=== PATIENT | female | born 1955 | race Caucasian/White ===

== ENCOUNTER 2020-09-05 16:20 | Outpatient (REF) | payer OTHER, SELFPAY ==
--- NOTE | 2020-09-05 16:29 | US_ITS ---
EXAMINATION: US VENOUS ULTRASOUND WITH DOPPLER LOWER EXTREMITY, LEFT CLINICAL INFORMATION: Left lower extremity pain and swelling COMPARISON: None TECHNIQUE: Ultrasound of the deep veins is performed from the hip to the calf with compression sonography and color and pulse Doppler assessment. Spectral analysis with color-flow imaging is performed. FINDINGS: There is normal venous compression and respiratory variation and augmented flow. The visualized common femoral vein, superficial femoral vein, profunda femoral vein, popliteal vein, and the trifurcation region shows no evidence of deep venous thrombosis. There is no significant popliteal fossa cyst. If the patient's symptoms persist, followup ultrasound in 5 days 7 days might be of value to exclude proximal propagation from a non-visualized calf vein. US/US venous duplex LE LT IMPRESSION: No DVT demonstrated in the left lower extremity.
== END 2020-09-05 16:21 | disposition home or self-care (01) ==
LOC: HO.US 16:20
PROVIDERS: Visit Provider Nurse Practitioner Family
DX: I82.401 Acute embolism and thrombosis of unspecified deep veins of right lower extremity (principal)
CPT/HCPCS: 93971

== ENCOUNTER → 2021-01-06 14:02 | Outpatient (REF) | payer OTHER, SELFPAY ==
--- NOTE | 2021-01-06 14:05 | CA_ITS ---
Transthoracic Echocardiogram Patient (Last, First, Middle): Kristin Smyth J Gender: Female Date of : 1955 Age: 65 Procedure Date: 01/06/2021 Procedure Type: Transthoracic Echocardiogram Location: OP Height: 152.4 cm Weight: 109.32 kg BSA: 2.02 m2 Heart Rate: bpm BP: 127 / 72 mmHg [employer]: RO Referring MD: Maritza Ferraro MD Corporate Lawyer: Sony Bernal MD Symptoms: M79.89 - Other specified soft tissue disorders Study Quality: Technically Difficult/contrast ECG Rhythm: Sinus Conclusions: - 1. Technically limited study despite use of contrast agent 2. Normal LV systolic and diastolic function 3. Limited evaluation of cardiac valves with normal cardiac valvular Doppler 4. Normal RV systolic pressure 5. No gross pericardial effusion Findings Procedure Information The patient receives contrast. Left Ventricle Normal left ventricular size, thickness, and systolic function. The visually estimated ejection fraction is between 60-65%. Diastolic function is normal for age. Right Ventricle The right ventricle was not well visualized. Atria The left atrium was not well visualized. Interatrial shunt cannot be excluded. The right atrium was not well visualized. Aortic Valve The aortic valve was not well visualized. There is no aortic valve stenosis. There is no aortic valve regurgitation. Mitral Valve The mitral valve was not well visualized. There is trace mitral valve regurgitation. There is no mitral valve stenosis. Pulmonic Valve The pulmonic valve was not well visualized. Tricuspid Valve The tricuspid valve was not well visualized. There is trace tricuspid valve regurgitation. The right ventricular systolic pressure is normal. The right ventricular systolic pressure is 12 mmHg. There is no evidence of pulmonary hypertension. Great Vessels The aorta was not well visualized. The pulmonary artery was not well visualized. Venous The inferior vena cava is normal in size and collapses greater than 50% with inspiration. Pericardium/Pleural The pericardium was not well visualized. Prior Study Comparison No significant change compared to prior study dated: 12/20/2015. Measurements 2D Linear Measurements IVSd: 0.94 0.6-0.9/0.6-1.0 cm LVIDd: 4.34 3.9-5.3/4.2-5.9 cm LVIDd Index: 2.15 2.4-3.2/2.2-3.1 cm/m2 LVIDs: 2.93 2.0-3.6 cm LVPWd: 1.02 0.7-1.1 cm Ao Root: 2.70 2.1-3.5 cm LA Diam: 3.20 2.7-3.8/3.0-4.0 cm LAIDs Index: 1.58 1.5-2.3 cm/m2 LV Mass: 174.66 67-162/88-224 g LV Mass Index: 86.47 43-95/49-115 g/m2 LVOT Diam: 2.00 3.0+(-)1.3 cm Mitral Valve MV Pk E: 1.03 MV PK A: 0.99 MV Decel Time: 176.00 E/A: 1.00 E'Lateral: 11.50 E'Medial: 8.12 E/E' Med: 12.70 E/E' Lat: 9.00 PHT: 52.00 MVA PHT: 4.23 Decel [place]: 5.87 Aortic Valve AoV Pk Adolph: 1.65 AoV Mn Adolph: 1.19 AoV VTI: 0.32 AoV Pk Grad: 11.00 Aov Mn Grad: 6.00 CATERINA Cont.VTI: 2.45 LVOT LVOT Pk Adolph: 1.31 LVOT Mn Adolph: 0.84 LVOT VTI: 0.25 LVOT Pk Grad: 7.00 LVOT Mn Grad: 3.00 LVOT Diam: 2.00 LVOT Area: 3.14 Diastolic Function MV Pk E: 1.03 MV Pk A: 0.99 E/A: 1.00 E'Medial: 8.12 E/E' Med: 12.70 E' Laterial: 11.50 E/E' Lat: 9.00 Tricuspid Valve TR Pk Adolph: 1.47 TR Pk Grad: 9.00 RA Press: 3.00 RVSP: 12.00 Great Vessels Aorta Ao Root-2D: 2.70 2.0-3.7 cm Ao Asc: 3.10 2.1-3.4 cm Updated in Other Vendor System with Status of Final Sony Bernal MD electronically signed on 01/06/2021 5:15:06 PM with status of Final
== END ==
LOC: HO.CARD 14:02
PROVIDERS: PCP Internal Medicine; Visit Provider Internal Medicine
DX: M79.89 Other specified soft tissue disorders (principal)
CPT/HCPCS: 93306; Q9957

== ENCOUNTER 2021-02-04 13:38 | Outpatient (REF) | payer OTHER, SELFPAY ==
[2021-02-04 15:08] LABS: Glucose Urine UA NEG (NEG); Leukocyte Esterase Urine 2+ (NEG); Nitrite Urine NEG (NEG); Specific Gravity - Urine 1.015 (1.005-1.025); UACC Culture Trigger YES; Urine Blood NEG (NEG); Urine Ketones NEG (NEG); Urine Protein TRACE MG/DL (NEG-TRACE)
[2021-02-04 15:11] LABS: Appearance Urine HAZY; Color Urine YELLOW
[2021-02-04 15:18] LABS: Bacteria Urine 1+ /LPF; RBC Urine 0 /HPF (0); Squamous Epithelial Cell Urine 2+ /LPF
== END 2021-02-04 13:39 | disposition home or self-care (01) ==
LOC: HO.LAB 13:38
PROVIDERS: PCP Internal Medicine; Visit Provider Internal Medicine
DX: R30.0 Dysuria (principal)
CPT/HCPCS: 81001; 81003; 87086

== ENCOUNTER 2021-02-10 12:04 | Outpatient (REF) | payer OTHER, SELFPAY ==
[2021-02-10 14:11] LABS: MANUAL DIFF FLAG NO
[2021-02-10 14:20] LABS: Basophils Percent Auto 0.5 % (0-2); Eosinophils Absolute Auto 0.4 X10*3/uL (0.0-0.4); Eosinophils Percent Auto 5.1 % (0-4); Hematocrit 38.7 % (37-47); Imm Gran Abs Auto 0.01 X10*3/uL (0.00-0.03); Imm Gran Pct Auto 0.1 % (0.0-0.4); Lymphocytes Absolute Auto 1.9 X10*3/uL (1.2-4.9); Lymphocytes Percent Auto 26.4 % (20-40); Mean Corpuscular Hemoglobin 30.1 pg (27.0-33.0); Mean Platelet Volume 9.7 fL (9.4-12.3); Monocytes Absolute Auto 0.6 X10*3/uL (0.1-1.2); Monocytes Percent Auto 8.5 % (2-11); Neutrophils Absolute Auto 4.4 X10*3/uL (2.0-8.3); Neutrophils Percent Auto 59.4 % (45-73); Platelet Count 336 X10*3/uL (160-400); Red Blood Count 3.99 X10*6/uL (4.20-5.50); Red Cell Distribution Width 14.8 % (11.0-16.0); White Blood Count 7.3 X10*3/uL (4.8-10.8)
[2021-02-10 14:36] LABS: Alanine Aminotransferase 31 U/L (0-31); Albumin Level 4.3 g/dL (3.5-5.0); Alkaline Phosphatase 123 U/L (39-117); Anion Gap 16 (12-20); Aspartate Amino Transferase 22 U/L (5-31); Bilirubin Total 0.5 mg/dL (0.0-1.0); Blood Urea Nitrogen 12 mg/dL (9-16); Calcium 9.4 mg/dL (8.4-10.2); Carbon Dioxide 26 mmol/L (22-29); Chloride 103 mmol/L (96-108); Estimated Glomerular Filt Rate 53; Glucose Fasting 115 mg/dL (60-99); Potassium 4.6 mmol/L (3.3-5.1); Sodium 140 mmol/L (135-145); Total Protein 7.6 g/dL (6.5-8.0)
[2021-02-10 14:40] LABS: B Type Natriuretic Peptide < 10 pg/mL (<100)
[2021-02-10 14:48] LABS: TSH reflex Free T4 2.17 uIU/mL (0.32-4.0)
== END 2021-02-10 12:05 | disposition home or self-care (01) ==
LOC: HO.10HDL 12:04
PROVIDERS: Visit Provider Internal Medicine
DX: M79.89 Other specified soft tissue disorders (principal)
CPT/HCPCS: 36415; 80053; 83880; 84443; 85025

== ENCOUNTER 2022-03-31 08:28 | Outpatient (REF) | payer OTHER, SELFPAY ==
[2022-03-31 08:47] LABS: MANUAL DIFF FLAG NO
[2022-03-31 09:00] LABS: Basophils Percent Auto 0.5 % (0-2); Eosinophils Absolute Auto 0.4 X10*3/uL (0.0-0.4); Hematocrit 39.3 % (37.0-47.0); Hemoglobin 12.5 g/dl (12.0-16.0); Imm Gran Abs Auto 0.01 X10*3/uL (0.00-0.03); Imm Gran Pct Auto 0.2 % (0.0-0.4); Lymphocytes Absolute Auto 2.1 X10*3/uL (1.2-4.9); Lymphocytes Percent Auto 36.6 % (20-40); Mean Corpuscular HGB Conc 31.8 g/dl (31.0-35.0); Mean Corpuscular Hemoglobin 30.6 pg (27.0-33.0); Mean Corpuscular Volume 96.1 fL (80.0-98.0); Mean Platelet Volume 9.4 fL (9.4-12.3); Monocytes Absolute Auto 0.6 X10*3/uL (0.1-1.2); Monocytes Percent Auto 10.4 % (2-11); Neutrophils Absolute Auto 2.7 x10*3/uL (2.0-8.3); Neutrophils Percent Auto 45.3 % (45-73); Platelet Count 305 X10*3/uL (160-400); Red Blood Count 4.09 X10*6/uL (4.20-5.50); Red Cell Distribution Width 14.5 % (11.0-16.0); White Blood Count 5.9 X10*3/uL (4.8-10.8)
[2022-03-31 09:27] LABS: Alanine Aminotransferase 34 U/L (0-31); Albumin Level 4.3 g/dL (3.5-5.0); Alkaline Phosphatase 115 U/L (39-117); Anion Gap 13 (12-20); Aspartate Amino Transferase 22 U/L (5-31); Bilirubin Total 0.3 mg/dL (0.0-1.0); Blood Urea Nitrogen 16 mg/dL (9-16); Calcium 9.5 mg/dL (8.4-10.2); Carbon Dioxide 28 mmol/L (22-29); Chloride 104 mmol/L (96-108); Cholesterol 196 mg/dL; Estimated Glomerular Filt Rate 57; Glucose Fasting 115 mg/dL (60-99); HDL Cholesterol 60 mg/dL; LDL Cholesterol Calculated 111 mg/dl; Potassium 4.4 mmol/L (3.3-5.1); Sodium 141 mmol/L (135-145); Total Protein 7.5 g/dL (6.5-8.0); Triglycerides 129 mg/dL
[2022-04-04 13:11] LABS: Vitamin D 25-OH, D2 <4 ng/mL; Vitamin D 25-OH, D3 39 ng/mL; Vitamin D 25-OH, Total 39 ng/mL (30-100)
== END 2022-03-31 08:29 | disposition home or self-care (01) ==
LOC: HO.LAB 08:28
PROVIDERS: PCP Internal Medicine; Visit Provider Internal Medicine
DX: E55.9 Vitamin D deficiency, unspecified (principal); E78.5 Hyperlipidemia, unspecified; E66.01 Morbid (severe) obesity due to excess calories; D64.9 Anemia, unspecified; J45.30 Mild persistent asthma, uncomplicated
CPT/HCPCS: 36415; 80053; 80061; 82306; 85025

== ENCOUNTER 2022-12-02 09:26 | Outpatient (REF) | payer OTHER, SELFPAY ==
--- NOTE | ~2022-12-02 | XR_ITS ---
EXAMINATION: XR SHOULDER, RIGHT CLINICAL INFORMATION: Shoulder pain COMPARISON: None TECHNIQUE: AP external rotation, Grashey, scapular Y, and axillary views of the right shoulder. FINDINGS: Mild inferior positioning of the humeral head with respect to glenoid. Glenohumeral joint space is maintained. Small inferior glenoid spur. Mild-moderate acromioclavicular arthritis. Mild subacromial spurring.. Mild greater trochanteric spurring/sclerosis. No acute fracture or dislocation. Diffuse bone demineralization. No abnormal soft tissue calcification. XR/XR shoulder RT min 2V IMPRESSION: Mild glenohumeral joint arthritis. Mild-moderate acromioclavicular arthritis.
--- NOTE | ~2022-12-02 | XR_ITS ---
EXAMINATION: XR WRIST, LEFT CLINICAL INFORMATION: Pain. Patient states pain on lateral border of wrist. COMPARISON: None TECHNIQUE: 5 views of the left wrist. FINDINGS: Moderate-severe first CMC arthritis, with chronic ossification medial to the joint. Mild-moderate triscaphe joint. 2 mm density adjacent to the ulna styloid process, only visualized on one view, could represent subtle nonspecific calcification. No acute fracture or dislocation is seen. Question small calcification/ossification palmar to the proximal carpal row on the lateral projection. Generalized soft tissue prominence. XR/XR wrist LT 2V IMPRESSION: No radiographic evidence of acute fracture or dislocation. Question small nonspecific soft tissue calcifications adjacent the ulnar styloid process, and volar to the proximal carpal row, could be related to dystrophic changes. First CMC moderate-severe arthritis. Mild-moderate triscaphe arthritis.
[2022-12-02 11:37] LABS: Estimated Average Glucose 140 mg/dL; Hemoglobin A1C 152.6738 umol/L; Hemoglobin A1c % 6.5 %
[2022-12-02 11:50] LABS: Alanine Aminotransferase 26 U/L (0-31); Albumin Level 4.1 g/dL (3.5-5.0); Alkaline Phosphatase 127 U/L (39-117); Anion Gap 20 (12-20); Aspartate Amino Transferase 18 U/L (5-31); Bilirubin Total 0.3 mg/dL (0.0-1.0); Blood Urea Nitrogen 17 mg/dL (9-16); Calcium 9.7 mg/dL (8.4-10.2); Carbon Dioxide 24 mmol/L (22-29); Chloride 100 mmol/L (96-108); Cholesterol 207 mg/dL; Estimated Glomerular Filt Rate > 60; Glucose Fasting 115 mg/dL (60-99); HDL Cholesterol 57 mg/dL; LDL Cholesterol Calculated 123 mg/dl; Potassium 4.3 mmol/L (3.3-5.1); Sodium 140 mmol/L (135-145); Total Protein 7.3 g/dL (6.5-8.0); Triglycerides 135 mg/dL
[2022-12-02 11:57] LABS: Vitamin D 25-OH Total 36.8 ng/mL (>30)
== END 2022-12-02 09:27 | disposition home or self-care (01) ==
LOC: HO.LAB 09:26
PROVIDERS: Nurse Practitioner Family; PCP Internal Medicine; Visit Provider Internal Medicine
DX: E55.9 Vitamin D deficiency, unspecified (principal); E78.5 Hyperlipidemia, unspecified; M25.532 Pain in left wrist; M25.511 Pain in right shoulder; E11.9 Type 2 diabetes mellitus without complications
CPT/HCPCS: 36415; 73030; 73100; 80053; 80061; 82306; 83036

== ENCOUNTER 2023-01-11 17:23 | Outpatient (REF) | payer OTHER, SELFPAY ==
[2023-01-11 18:40] LABS: Appearance Urine Clear; Color Urine Yellow; Glucose Urine UA Negative (Negative); Leukocyte Esterase Urine Small (1+) (Negative); Nitrite Urine Negative (Negative); PH 6.5 (5.0-9.0); Specific Gravity - Urine 1.015 (1.005-1.025); UMIC TRIGGER UACC YES; Urine Blood Negative (Negative); Urine Ketones Negative (Negative); Urine Protein Negative (Neg-Trace)
[2023-01-11 18:46] LABS: Bacteria Urine None Seen (None Seen); Hyaline Casts Urine 0-2 /LPF (0-2); RBC Urine 0-2 /HPF (0-2); UACC Culture Trigger YES
== END 2023-01-11 17:24 | disposition home or self-care (01) ==
LOC: HO.LAB 17:23
PROVIDERS: PCP Internal Medicine; Visit Provider Internal Medicine
DX: R30.0 Dysuria (principal)
CPT/HCPCS: 81001; 87086

== ENCOUNTER 2023-01-27 13:02 | Outpatient (REF) | payer OTHER, SELFPAY ==
--- NOTE | ~2023-01-27 | XR_ITS ---
Examination: The right hip and lumbar spine. Clinical indications: Low back pain. Right hip pain. TECHNIQUE: 3 views of lumbar spine and 2 views of right hip. FINDINGS: There is maintained lumbar lordosis. There is loss of L2-L3 disc height with vacuum disc phenomena and ventral spondylosis. Rest the disc heights are normal. There is moderate right L4-L5 and bilateral L5-S1 facet joint arthropathy No visible acute fracture, dislocation, lytic or sclerotic process seen. Right hip: Right hip joint space is maintained normal. No bony erosive changes or loose bodies. No acute fracture or dislocation. There is a small calcification along the greater trochanter likely calcific bursitis. The soft tissues are normal. XR/XR hip RT min 2V IMPRESSION: 1. Degenerative disc changes L2-L3 disc level with ventral spondylosis. Facet joint arthropathy as described above. No visible acute fracture, dislocation or lytic process seen. 2. Unremarkable right hip exam except for calcific bursitis along the greater trochanter.
--- NOTE | ~2023-01-27 | XR_ITS ---
Examination: The right hip and lumbar spine. Clinical indications: Low back pain. Right hip pain. TECHNIQUE: 3 views of lumbar spine and 2 views of right hip. FINDINGS: There is maintained lumbar lordosis. There is loss of L2-L3 disc height with vacuum disc phenomena and ventral spondylosis. Rest the disc heights are normal. There is moderate right L4-L5 and bilateral L5-S1 facet joint arthropathy No visible acute fracture, dislocation, lytic or sclerotic process seen. Right hip: Right hip joint space is maintained normal. No bony erosive changes or loose bodies. No acute fracture or dislocation. There is a small calcification along the greater trochanter likely calcific bursitis. The soft tissues are normal. XR/XR lumbar spine 2-3V IMPRESSION: 1. Degenerative disc changes L2-L3 disc level with ventral spondylosis. Facet joint arthropathy as described above. No visible acute fracture, dislocation or lytic process seen. 2. Unremarkable right hip exam except for calcific bursitis along the greater trochanter.
== END 2023-01-27 13:03 | disposition home or self-care (01) ==
LOC: HO.XRAY 13:02
PROVIDERS: PCP Internal Medicine; Visit Provider Internal Medicine
DX: M25.551 Pain in right hip (principal); M54.50 Low back pain, unspecified
CPT/HCPCS: 72100; 73502

== ENCOUNTER 2023-01-29 12:59 | Outpatient (REF) | payer OTHER, SELFPAY ==
--- NOTE | ~2023-01-29 | US_ITS ---
EXAMINATION: US COMPLETE ABDOMEN WITH LIVER ELASTOGRAPHY CLINICAL INFORMATION: Abdominal pain; morbid obesity. COMPARISON: Abdominal ultrasound dated 06/03/2020. TECHNIQUE: Real-time imaging of the abdominal viscera. Noninvasive ultrasound liver fibrosis assessment is performed using [employer] Elast[employer] point quantification shear wave elastography (2D-SWE) with a C5-2 MHz transducer. Multiple elastography samples are obtained. FINDINGS: PANCREAS: Normal. The visualized pancreatic head and body are normal in appearance. The remainder of the pancreas is obscured from visualization by the overlying bowel gas. ABDOMINAL AORTA: The proximal and middle segments are normal in caliber. The distal segment is largely obscured by overlapping bowel gas. INFERIOR VENA CAVA: Visualized portions are normal. LIVER: The liver demonstrates normal size, mildly lobulated contour and increased echogenicity. No focal lesion or intrahepatic biliary duct dilatation. The right lobe measures 17.2 cm in length. The left lobe measures 11.1 cm in length. Portal flow is towards the liver (hepatopetal). Shear wave liver elastography median stiffness is 1.52 m/s (reference: normal median stiffness is 1.3 m/s or less). IQR/median stiffness to assess sampling precision is 0.23 (reference: good quality data set is IQR/median stiffness of 0.15 or less). GALLBLADDER: Normal. The gallbladder is physiologically distended without evidence of stones, sludge, polyps, wall thickening or pericholecystic fluid. COMMON BILE DUCT: Normal in caliber measuring 0.7 cm in diameter. RIGHT KIDNEY: There are echogenic foci which do not meet formal ultrasound criteria for calculi. No hydronephrosis. No renal calculi or focal parenchymal lesions. The kidney measures 8.7 cm in maximum dimension. LEFT KIDNEY: There are echogenic foci which do not meet formal ultrasound criteria for calculi. No hydronephrosis. No renal calculi or focal parenchymal lesions. The kidney measures 9.2 cm in maximum dimension. SPLEEN: Normal. The spleen measures 9.1 cm in maximum dimension. FREE FLUID: None. US/US abdomen comp w elastography IMPRESSION: 1. There is generalized increase in hepatic echotexture, consistent with fatty infiltration or hepatocellular disease. Please correlate clinically. No focal hepatic mass or intrahepatic biliary dilatation is seen. 2. Liver elastography: Although measurements appear to rule out compensated advanced chronic liver disease, there is statistical variability of the sampling which decreases accuracy. REFERENCE: Society of Radiologists in Ultrasound Liver Stiffness Thresholds (2020): LIVER STIFFNESS THRESHOLDS: *Liver Stiffness equal or less than 1.3 m/s: High probability of being normal. *Liver Stiffness less than 1.7 m/s: In the absence of other known clinical signs, rules out compensated advanced chronic liver disease. *Liver Stiffness 1.7-2.1 m/s: Suggestive of compensated advanced chronic liver disease but need further test for confirmation. *Liver Stiffness over 2.1 m/s: Rules in compensated advanced chronic liver disease. *Liver Stiffness over 2.4 m/s: Suggestive of clinically significant portal hypertension. QUALITY OF DATA SET: *IQR/Median value equal or less than 0.15 implies a quality data set. *IQR/Median value over 0.15 implies a poor quality data set. SIGNIFICANT CHANGE FROM PRIOR EXAM: Significant change if liver stiffness measurement is 10% or greater from prior exam. OTHER CONSIDERATIONS: The stage of liver fibrosis may be overestimated in the setting of acute hepatitis, liver inflammation, elevated liver function tests, hepatic vascular congestion, obstructive cholestasis, non-fasting state, and infiltrative diseases such as amyloidosis and lymphoma. In some patients with NAFLD, the liver stiffness thresholds for compensated advanced chronic liver disease may be lower. In causes other than viral hepatitis and NAFLD, liver stiffness thresholds are not well established.
== END 2023-01-29 13:00 | disposition home or self-care (01) ==
LOC: HO.US 12:59
PROVIDERS: PCP Internal Medicine; Visit Provider Internal Medicine
DX: R10.9 Unspecified abdominal pain (principal)
CPT/HCPCS: 76705; 76981

== ENCOUNTER 2023-03-02 13:39 | Outpatient (REF) | payer OTHER, SELFPAY ==
--- NOTE | ~2023-03-02 | MM_ITS ---
EXAMINATION: BONE DENSITOMETRY CLINICAL INDICATION: Unspecified menopausal and perimenopausal disorder. COMPARISON: None (current study represents initial baseline exam). TECHNIQUE: Using a [employer] DXA System (software version: 13.1) manufactured by [employer], dual-energy x-ray absorptiometry was performed of the lumbar spine and left hip. The images are of good technical quality. Summary results are attached. FINDINGS: AP SPINE L1-L4: BMD 1.135 g/cm2, Z-score 0.1, T-score -0.4, normal. LEFT FEMUR, NECK: BMD 0.912 g/cm2, Z-score -0.1, T-score -0.9, normal. LEFT FEMUR, TOTAL: BMD 0.948 g/cm2, Z-score 0.0, T-score -0.5, normal. IDENTIFIED RISK FACTORS: Bilateral oophorectomy, early menopause, history of fracture (adult), hysterectomy, osteoporosis, recurrent falls, secondary osteoporosis. HISTORY OF FRACTURE: Lower extremity. MEDICATIONS: Vitamin D. MM/XR DEXA axial skeleton IMPRESSION: 1. DIAGNOSIS: Normal bone density based on the lowest T-score value of -0.9 in the femoral neck applying World Health Organization criteria. 2. 10-YEAR FRACTURE RISK PREDICTION, FRAX: According to the guidelines, FRAX calculation should only be performed on patients in the osteopenia bone density category. Therefore, FRAX was not performed on this patient. 3. Treatment Recommendations: NOF guidelines recommend consideration for treatment in postmenopausal women and men age 50 and older presenting with the following: -A hip or vertebral (clinical or morphometric) fracture. -T-score less than or equal to -2.5 at the femoral neck or spine after appropriate evaluation to exclude secondary causes. -Low bone mass at the hip or spine and a 10-year fracture probability by FRAX of greater than or equal to 3% for hip fracture or greater than or equal to 20% for major osteoporotic fracture based on the [place] adapted WHO algorithm. 4. Other Recommendations: All treatment decisions require clinical judgment and consideration of individual patient factors, including patient preferences, comorbidities, previous drug use, risk factors not captured in the FRAX model (e.g. frailty, falls, vitamin D deficiency, increased bone turnover, interval significant decline in bone density) and possible under or overestimation of fracture risk by FRAX. FUTURE SCAN RECOMMENDATION: People with diagnosed cases of osteoporosis or at high risk for fracture should have regular bone mineral density tests. For patients eligible for Medicare, routine testing is allowed once every 2 years. The testing frequency can be increased to one year for patients who have rapidly progressing disease, those who are receiving or discontinuing medical therapy to restore bone mass, or have additional risk factors.
== END 2023-03-02 13:40 | disposition home or self-care (01) ==
LOC: HO.MAMMO 13:39
PROVIDERS: PCP Internal Medicine; Visit Provider Internal Medicine
DX: Z13.820 Encounter for screening for osteoporosis (principal); Z78.0 Asymptomatic menopausal state
CPT/HCPCS: 77080

== ENCOUNTER 2023-07-05 14:06 | Outpatient (AMB) | payer OTHER, SELFPAY ==
[2023-07-05 14:14] VITALS: BP 136/78; BMI 41.3
--- NOTE | 2023-07-05 14:14 | A.OFFPC_ITS ---
Vital Signs 07/05/23 14:14 Height 5 ft 2 in Weight 226 lb BMI 41.3 BP 136/78 Blood Pressure Location Lt brachial Position Sitting Intake Visit Reasons: follow up lipids Intake Note: Patient here for a follow up Lipids, c/o left foot pain Adult Educator Required: No Accompanied by: Self / Same As Patient Allergies naproxen [NAPROXEN] Allergy (Severe, Verified 07/05/23 14:25) RASH,DIFF BREATHING, anaphylaxis NSAIDS (Non-Steroidal Anti-Inflamma [NSAIDS (NON-STEROIDAL ANTI-INFLAMMA] Allergy (Severe, Verified 07/05/23 14:25) ANAPHYLAXIS celecoxib [Celebrex] Allergy (Intermediate, Verified 07/05/23 14:25) anaphylaxis erythromycin base [ERYTHROMYCIN BASE] Allergy (Intermediate, Verified 07/05/23 14:25) SWELLING strawberry [STRAWBERRY] Allergy (Intermediate, Verified 07/05/23 14:25) SWELLING, DIFF BREATHING Medication List - Last Reconciled 07/05/23 by Maritza Ferraro MD baclofen 20 mg PO TID 30 days [id number]-qvthbqaopnaxg-ukjp 50-325-40 mg 1 tab PO Q6H PRN 30 days cholecalciferol (vitamin D3) 25 mcg PO DAILY 2 months clonazepam 0.5 mg PO BID PRN epinephrine 0.3 mg (0.3 mL) IM Q10M PRN 30 days epinephrine 0.3 mg (0.3 mL) IM Q4H PRN 30 days fluoxetine 60 mg (3 x 20 mg) PO DAILY 7 days furosemide 20 mg PO DAILY 30 days hydrocortisone 1% (Anti-Itch (hydrocortisone)) 1 appl topical BID PRN 14 days omeprazole 40 mg PO DAILY 90 days ondansetron 8 mg PO Q12H PRN 30 days [pads As directed] polyethylene glycol 3350 17 grams PO DAILY simvastatin 40 mg PO DAILY Ventolin HFA 90 mcg/actuation (albuterol sulfate) 2 puffs inhalation Q6H PRN 30 days NS zolpidem 5 mg PO BEDTIME Tobacco use date assessed: 11/04/22 Fall risk assessment: No Falls in past year Last assessed Fall Risk: 07/05/23 Dental Screening Dental Screen Date: 07/05/23 Did you have a dental visit in the last 12 months?: No Did you have a dental problem in the last 6 months where you did not have access to dental care?: No Was dental information given to patient?: Patient has dentist HPI HPI Comments History of Present Illness Details This is a 68-year-old female with moderate major depression, morbid obesity, GERD and dyslipidemia that comes today for follow-up on her conditions. Depression stable with SSRIs. Depression is follow by Psychiatry. She is morbidly obese with a BMI of 41.3 and was advised to diet and exercise to reach BMI goal less than 30. She declines weight loss surgery. GERD stable with PPIs. On statins for her dyslipidemia and had some impaired glucose tolerance which will be recheck. No chest pain or shortness of breath. Complains of b ilateral leg swelling that improves with diuretics as needed. [facility] Medical History (Updated 02/22/23 @ 10:51 by Maritza Ferraro MD) History of substance abuse Impaired glucose tolerance Insomnia due to mental disorder MARK (generalized anxiety disorder) Moderate major depression Morbid obesity Urinary incontinence Hypovitaminosis D Nausea Dyslipidemia Mild asthma GERD (gastroesophageal reflux disease) Insomnia Left leg swelling Surgical History S/P AVELINA (total abdominal hysterectomy) History of open reduction and internal fixation (ORIF) procedure History of breast lump/mass excision History of left knee replacement History of cataract surgery History of cholecystectomy Family History Father Medical history unknown Mother Hypertension Breast cancer Maternal Aunt Diabetes Maternal Uncle CVD (cardiovascular disease) Family/Other Mental health disorder Substance use disorder Social History Housing: Apartment Alcohol intake: former Year quit: 1981 Patient Tobacco Use Status: Former Tobacco user Tobacco use type: Cigarette e-Cigarette/Vaping Use: Never Used Second Hand Smoke Exposure: No service: No Current occupational status: disabled Cognitive needs: Yes (cane) Hearing needs: No Vision needs: Yes (glasses) Questionnaire Thrive Questionnaire Date Thrive assessed: 11/04/22 MARK-7 AMB Questionnaire MARK-7 Date MARK - 7 assessed: 11/04/22 Source: Developed by Drs. Steven Cardona, Nidia Boswell, Forest Traylor and colleagues, with an educational jeffrey from [employer]. Review of Systems Const All systems reviewed & are unremarkable except as noted in HPI and below Eyes Reports no additional complaints, Denies change in vision and Denies other visual disturbances Card Denies chest pain at rest, Denies chest pain with activity, Denies edema, Denies irregular heart rhythm, Denies claudication, Denies dyspnea, Denies dyspnea on exertion, Denies orthopnea, Denies paroxysmal nocturnal dyspnea and Denies slow heart rate Resp Denies cough, Denies dyspnea and Denies dyspnea on exertion GI Denies abdominal pain, Denies change in bowel habits, Denies excessive flatus, Denies nausea and Denies vomiting Denies urinary incontinence, Denies urinary hesitancy and Denies urinary urgency Musc Denies abnormal gait, Denies atrophy, Denies deformity and Denies limited range of motion Skin/Breast Denies bleeding lesions, Denies changing lesions and Denies rash Neuro Denies abnormal gait and Denies lack of coordination Physical exam (Primary Care) Vital Signs: Last Vital Signs BP 136/78 07/05/23 14:14 BMI result Body Mass Index 41.3 Tobacco/Smoking Status: Tobacco use Status Tobacco use date assessed 11/04/22 07/05/23 14:21 Patient Tobacco Use Status Former Tobacco user 07/05/23 14:21 Tobacco use type Cigarette 07/05/23 14:21 e-Cigarette/Vaping Use Never Used 07/05/23 14:21 Thrive Assessment: Date of Thrive Assessment Date Thrive assessed 11/04/22 07/05/23 14:21 Eyes General: appearance normal, both eyes and all related structures Eyelids: Yes eyelids normal Conjunctivae: conjunctivae normal Neck Neck: Yes normal visual inspection and Yes supple Resp Effort & Inspection: normal respiratory effort Auscultation: clear to auscultation bilaterally Cardio Jugular venous distension: no JVD Rate: regular rate Rhythm: regular rhythm Heart sounds: S1 normal heart sound present and S2 normal heart sound present Extrem General: Yes full ROM Assessment and Plan Assessment & Plan (1) Moderate major depression: Code(s): F32.1 - Major depressive disorder, single episode, moderate Plan: Continue SSRIs. (2) Morbid obesity: Code(s): E66.01 - Morbid (severe) obesity due to excess calories Plan: Start diet and exercise. BMI goal is less than 30 pain (3) GERD (gastroesophageal reflux disease): Code(s): K21.9 - Gastro-esophageal reflux disease without esophagitis Qualifiers: Esophagitis presence: esophagitis presence not specified Qualified Code(s): K21.9 - Gastro-esophageal reflux disease without esophagitis Plan: Continue PPIs (4) Dyslipidemia: Code(s): E78.5 - Hyperlipidemia, unspecified Plan: Continue statins. Orders: Orders Comprehensive [place]. Panel Fast Today E66.01 - Morbid (severe) obesity due to excess calories Lipid Panel Today E78.5 - Hyperlipidemia, unspecified Medications: Changed From furosemide 20 mg PO DAILY 30 days 30 tabs 0RF To furosemide 20 mg PO DAILY 90 days 90 tabs 0RF Refilled zlrveruubh-othutljwdrqxa-itcq 50-325-40 mg 1 tab PO Q6H 30 days PRN 120 tabs 1RF pain cholecalciferol (vitamin D3) 25 mcg PO DAILY 2 months 60 tabs 11RF Coding Level of Care Code Est Pt Level 4 (35283) Diagnoses Moderate major depression F32.1 Morbid obesity E66.01 Gastroesophageal reflux disease, unspecified whether esophagitis present K21.9 Esophagitis presence: esophagitis presence not specified Dyslipidemia E78.5 Time Spent (min) 22
== END 2023-07-05 14:40 | disposition home or self-care (01) ==
PROVIDERS: PCP Internal Medicine; Visit Provider Internal Medicine
DX: K21.9 Gastro-esophageal reflux disease without esophagitis (principal); F32.1 Major depressive disorder, single episode, moderate; E66.01 Morbid (severe) obesity due to excess calories; Z68.41 Body mass index [BMI] 40.0-44.9, adult; E78.5 Hyperlipidemia, unspecified
CPT/HCPCS: 99214

== ENCOUNTER 2023-07-06 09:38 | Outpatient (REF) | payer OTHER, SELFPAY ==
[2023-07-06 11:04] LABS: Alanine Aminotransferase 22 U/L (0-31); Albumin Level 3.9 g/dL (3.5-5.0); Alkaline Phosphatase 104 U/L (39-117); Anion Gap 12 (12-20); Aspartate Amino Transferase 18 U/L (5-31); Bilirubin Total 0.2 mg/dL (0.0-1.0); Blood Urea Nitrogen 13 mg/dL (9-16); Calcium 9.6 mg/dL (8.4-10.2); Carbon Dioxide 28 mmol/L (22-29); Chloride 104 mmol/L (96-108); Cholesterol 178 mg/dL (<200); Estimated Glomerular Filt Rate 60; Glucose Fasting 127 mg/dL (60-99); HDL Cholesterol 59 mg/dL (>40); LDL Cholesterol Calculated 99 mg/dL (<100); Potassium 4.2 mmol/L (3.3-5.1); Sodium 140 mmol/L (135-145); Total Protein 7.1 g/dL (6.5-8.0); Triglycerides 103 mg/dL (<150)
[2023-07-06 11:22] LABS: Vitamin D 25-OH Total 41.9 ng/mL (>30)
== END 2023-07-06 09:39 | disposition home or self-care (01) ==
LOC: HO.LAB 09:38
PROVIDERS: PCP Internal Medicine; Visit Provider Internal Medicine
DX: E78.5 Hyperlipidemia, unspecified (principal); E55.9 Vitamin D deficiency, unspecified; E66.01 Morbid (severe) obesity due to excess calories
CPT/HCPCS: 36415; 80053; 80061; 82306